=== PATIENT | male | born 1980 | race African-American/Black ===

== ENCOUNTER 2017-01-01 05:51 | Day surgery (SDC) | payer OTHER ==
[~2017-01-01] VITALS: Ht 188 cm; Wt 97.5 kg
[~2017-01-01 05:51] MED LIST: AZELASTINE205.5 MCG/ BOTH NARES; Augmentin PO; CELEBREX200 MG PO; Motrin PO; NASACORT10.8 ML BOTH NARES; Percocet 5/325,Endoc PO; ZYRTEC10 M3 PO
[2017-01-01 07:00] VITALS: BP 133/87
[2017-01-01 10:29] VITALS: BP 128/87
[2017-01-01 11:28] VITALS: BP 114/55
== END 2017-01-01 12:05 | disposition home or self-care (01) ==
LOC: SDC 05:51
PROC: 0VBF0ZZ Excision of Right Spermatic Cord, Open Approach (ICD-10-PCS; principal; 2017-01-01)
DX: N50.89 Other specified disorders of the male genital organs (principal); Z98.52 Vasectomy status
CPT/HCPCS: 88304; J0690; J1100; J1170; J2250; J2405; J3010; J7050